=== PATIENT | female | born 1945 | race Caucasian/White ===

== ENCOUNTER 2017-06-22 14:59 | Emergency (ER) | payer MEDICARE ==
[~2017-06-22 14:59] MED LIST: ACYC-1 PO; CALC600T72 PO; DIET1CAP4 PO; GABA-547 PO; GLUC-198 PO; HYDR-385 PO; HYDR12.561 PO; KET10 PO; LEV500 PO; LOR10 PO; LOR5 PO; LOR5/325 PO; METO25TA23 PO; NIT3 PO; NITR1PAT58 TD; PANT40TA65 PO; PRO25 PO; SUCR1TAB51 PO; [UNRECOGNIZED DRUG - CODE] MC
[2017-06-22] MEDS ORDERED: ASPIRIN 81 MG CHEW PO ONE (15:10)
[2017-06-22] MEDS ORDERED: LORazepam 2 MG/ML VIAL IVP ONE (15:10)
--- NOTE | 2017-06-22 15:12 | ER Report ---
History and Physical Time Seen By MD: 15:10 Hx. 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 Musculoskeletal: No back pain. Remainder of the 14 system rev: Yes Allergies: Coded Allergies: Shellfish (Verified Allergy, Severe, FACE BLOATS AND EYES SWELL SHUT, 06/22) bacitracin (Verified Allergy, Intermediate, HIVES, 06/22/17) iodine (Verified Allergy, Intermediate, PT BECAME LETHARGIC, 06/22/17) INTERNAL IODINE FROM CT SCAN latex (Verified Allergy, Intermediate, GLOVES CAUSE A RASH, 06/22/17) polymyxin B (Verified Allergy, Intermediate, HIVES, 06/22/17) Home Meds Active Scripts Promethazine Hcl (Phenergan) 25 Mg Tab, 25 MG PO Q6H, #10 0 Refills NEEDED FOR NAUSEA AND VOMITTING Prov:DANIEL WORKMAN MD 02/06/07 Reported Medications Pantoprazole Sodium (PANTOPRAZOLE SODIUM) 40 Mg Tablet.dr, 40 MG PO QDAY, #30 TAB.SR 07/22/13 Ketorolac Tromethamine (KETOROLAC TROMETHAMINE) 10 Mg Tab, 10 MG PO QID, #16 TAB 07/22/13 Hydrocodone Bit/Acetaminophen (HYDROCODON-ACETAMINOPHEN 5-325) 1 Each Tablet, 1- 2 EACH PO Q4H Y for PAIN 07/22/13 Acyclovir (ACYCLOVIR) 200 Mg Capsule, 200 MG PO BID, #10 CAP TAKE 1 CAPSULE BY MOUTH TWICE A DAY 07/21/13 Gabapentin (GABAPENTIN) 100 Mg Capsule, 100 MG PO TID, CAPSULE 4/29/14 Hydrochlorothiazide (HYDROCHLOROTHIAZIDE) 12.5 Mg Tablet, 1 TAB PO QODAY TAKE ONE TABLET BY MOUTH EVERY DAY 07/21/13 Metoprolol Succinate (METOPROLOL SUCCINATE) 25 Mg Tab.er.24h, 0.5 TAB PO QDAY TAKE ONE TABLET BY MOUTH EVERY DAY 07/21/13 Sucralfate (SUCRALFATE) 1 Gm Tablet, 2 GM PO BIDAC 07/21/13 Acetaminophen/Hydrocodone (Lortab 5/325 Mg) 5 Mg/325 Mg Tab, 1 TAB PO QID Y, 0 Refills 06/26/10 Promethazine Hcl (Phenergan) 25 Mg Tab, 25 MG PO QID Y, 0 Refills 06/26/10 Nitroglycerin (Nitrostat) 0.3 Mg Subl, 0.4 MG PO PRN, 0 Refills 06/26/10 Loratadine (Claritin) 10 Mg Tab, 10 MG PO QDAY, 0 Refills 09/29/09 Calcium Carbonate (Calcium) 600 Mg Tablet, 600 MG PO DAILY, 0 Refills 09/29/09 Dietary Supplement (Mature Women's) 1 Cap Capsule, 1 CAP PO DAILY, 0 Refills 09/29/09 Reviewed Nurses Notes: Yes Old Medical Records Reviewed: Yes Hx Smoking: No Smoking Status: Never Smoker Hx Substance Use Disorder: No Hx Alcohol Use: No Constitutional Vital Sign - Last 24 Hours 06/22/17 06/22/17 15:04 15:04 Resp 18 O2 Delivery Room Air O2 Flow Rate 2.0 Physical Exam General Appearance: The patient is alert, has no immediate need for airway protection and no current signs of toxicity. Appears anxious Eyes: Pupils equal and round no injection. Respiratory: Chest is non tender, lungs are clear to auscultation. Cardiac: regular rate and rhythm [ ] Gastrointestinal: Abdomen is soft and non tender, no masses, bowel sounds normal. Musculoskeletal: Neck: Neck is supple and non tender. Extremities have full range of motion and are non tender. Skin: No rashes or lesions. [ ] DIFFERENTIAL DIAGNOSIS: After history and physical exam differential diagnosis was considered for myocardial infarction pulmonary emboli aortic dissection anxiety Musca skeletal chest pain Medical Decision Making Data Points Result Diagram: 06/22/17 1515 06/22/17 1515 Laboratory Hematology Test 06/22/17 15:15 06/22/17 16:34 Red Blood Count 5.15 M/uL (4.17-5.56) Mean Corpuscular Volume 92.3 fL (80.0-96.0) Mean Corpuscular Hemoglobin 30.9 pg (26.0-33.0) Mean Corpuscular Hemoglobin Concent 33.5 g/dL (32.0-36.0) Red Cell Distribution Width 13.9 % (11.5-14.5) Mean Platelet Volume 7.5 fL (7.2-11.1) Neutrophils (%) (Auto) 83.5 % (39.4-72.5) Lymphocytes (%) (Auto) 9.3 % (17.6-49.6) Monocytes (%) (Auto) 6.6 % (4.1-12.4) Eosinophils (%) (Auto) 0.4 % (0.4-6.7) Basophils (%) (Auto) 0.2 % (0.3-1.4) Nucleated RBC Relative Count (auto) 0.0 /100WBC Neutrophils # (Auto) 13.7 K/uL (2.0-7.4) Lymphocytes # (Auto) 1.5 K/uL (1.3-3.6) Monocytes # (Auto) 1.1 K/uL (0.3-1.0) Eosinophils # (Auto) 0.1 K/uL (0.0-0.5) Basophils # (Auto) 0.0 K/uL (0.0-0.1) Nucleated RBC Absolute Count (auto) 0.00 K/uL D-Dimer Quantitative (PE/DVT) 0.46 ug/ml (0-0.50) Sodium Level 140 mmol/L (137-145) Potassium Level 3.6 mmol/L (3.5-5.0) Chloride Level 99 mmol/L (98-107) Carbon Dioxide Level 29 mmol/L (22-31) Blood Urea Nitrogen 14 mg/dl (7-18) Creatinine 0.90 mg/dl (0.52-1.04) Glomerular Filtration Rate Calc > 60.0 Random Glucose 129 mg/dl (75-110) Calcium Level 8.8 mg/dl (8.4-10.2) Total Bilirubin 0.7 mg/dl (0.2-1.3) Aspartate Amino Transf (AST/SGOT) 51 U/L (0-35) Alanine Aminotransferase (ALT/SGPT) 63 U/L (0-56) Alkaline Phosphatase 157 U/L (0-126) B-Type Natriuretic Peptide < 5 pg/ml (0-100) Total Protein 7.8 gm/dl (6.3-8.2) Albumin 4.2 g/dl (3.5-5.0) Troponin I < 0.012 ng/ml Chemistry Test 06/22/17 15:15 06/22/17 16:34 White Blood Count 16.4 k/uL (4.5-11.0) Red Blood Count 5.15 M/uL (4.17-5.56) Hemoglobin 15.9 g/dL (12.0-16.0) Hematocrit 47.5 % (34.0-47.0) Mean Corpuscular Volume 92.3 fL (80.0-96.0) Mean Corpuscular Hemoglobin 30.9 pg (26.0-33.0) Mean Corpuscular Hemoglobin Concent 33.5 g/dL (32.0-36.0) Red Cell Distribution Width 13.9 % (11.5-14.5) Platelet Count 299 K/uL (150-450) Mean Platelet Volume 7.5 fL (7.2-11.1) Neutrophils (%) (Auto) 83.5 % (39.4-72.5) Lymphocytes (%) (Auto) 9.3 % (17.6-49.6) Monocytes (%) (Auto) 6.6 % (4.1-12.4) Eosinophils (%) (Auto) 0.4 % (0.4-6.7) Basophils (%) (Auto) 0.2 % (0.3-1.4) Nucleated RBC Relative Count (auto) 0.0 /100WBC Neutrophils # (Auto) 13.7 K/uL (2.0-7.4) Lymphocytes # (Auto) 1.5 K/uL (1.3-3.6) Monocytes # (Auto) 1.1 K/uL (0.3-1.0) Eosinophils # (Auto) 0.1 K/uL (0.0-0.5) Basophils # (Auto) 0.0 K/uL (0.0-0.1) Nucleated RBC Absolute Count (auto) 0.00 K/uL D-Dimer Quantitative (PE/DVT) 0.46 ug/ml (0-0.50) Glomerular Filtration Rate Calc > 60.0 Calcium Level 8.8 mg/dl (8.4-10.2) Total Bilirubin 0.7 mg/dl (0.2-1.3) Aspartate Amino Transf (AST/SGOT) 51 U/L (0-35) Alanine Aminotransferase (ALT/SGPT) 63 U/L (0-56) Alkaline Phosphatase 157 U/L (0-126) B-Type Natriuretic Peptide < 5 pg/ml (0-100) Total Protein 7.8 gm/dl (6.3-8.2) Albumin 4.2 g/dl (3.5-5.0) Troponin I < 0.012 ng/ml Coagulation Test 06/22/17 15:15 D-Dimer Quantitative (PE/DVT) 0.46 ug/ml ED Course/Re-evaluation ED Course ED clinical course medical decision make a 71-year-old female who comes in with shortness of breath and anxiety her cardiac workup was negative troponins 2 d- dimer BNP chest x-ray shows a slight bump in her white count unclear etiology went ahead and gave her limit Ativan almost completely resolved her symptoms patient will be discharge diagnosis anxiety she does take anxiety medication at home which she has not taken recently will encourage her taken as prescribed Decision to Disposition Date: Jun 22, 2017 Decision to Disposition Time: 17:06 Depart Departure Latest Vital Signs Vital Signs Date Time Temp Pulse Resp B/P (MAP) Pulse Ox O2 Delivery O2 Flow Rate FiO2 06/22/17 15:04 2.0 06/22/17 15:04 18 Room Air Impression: Primary Impression: Anxiety Condition: Improved Disposition: HOME OR SELF-CARE Referrals: ERWIN JACOBSEN MD (PCP) 5 Days Patient Instructions: Anxiety (DC) JOHAN SHUKLA MD Jun 22, 2017 15:12
--- NOTE | 2017-06-22 15:23 | EKG ---
FACILITY: [facility] - [place] PATIENT NAME: SULAIMAN BROWN : [id number] MR: [id number] V: [id number] EXAM DATE: ORDERING PHYSICIAN: JOHAN SHUKLA TECHNOLOGIST: FLY Carlton Reason : SOB Blood Pressure : / mmHG Vent. Rate : 097 BPM Atrial Rate : 097 BPM P-R Int : 166 ms QRS Dur : 100 ms QT Int : 394 ms P-R-T Axes : 043 -52 091 degrees QTc Int : 500 ms Normal sinus rhythm Left ventricular hypertrophy with repolarization abnormality R wave progression consistent with old ant/sep NE When compared with ECG of 21-JUL-2013 12:36, QRS has widened Confirmed by NIKKIE ABDUL ([id number]) on 06/23/2017 2:03:23 PM Referred By: VAZQUEZ Confirmed By:NIKKIE ABDUL
[2017-06-22 15:32] LABS: PLATELET COUNT, AUTOMATED 299 K/uL (150-450)
--- NOTE | 2017-06-22 15:59 | RADIOLOGY IMAGING REPORT ---
FACILITY: [facility] PATIENT NAME: Sarha Carrizales : 1945 MR: [id number] V: [id number] EXAM DATE: ORDERING PHYSICIAN: JOHAN SHUKLA TECHNOLOGIST: Location: [facility] Patient: Sarah Carrizales : 1945 Visit/Account:[id number] Date of Sevice: 06/22/2017 2 VIEWS CHEST INDICATION: Chest and jaw pain. Unable to take deep breath. COMPARISON: 07/22/2013. FINDINGS: Cardiac silhouette remains mildly enlarged but unchanged. Mediastinal silhouette and pulmonary vessel s within normal limits. There is no focal infiltrate or lobar consolidation. There is no pneumothorax or pleural effusion. No nodule. Chronic interstitial changes. Upper abdomen is unremarkable. No acute bony abnormality. IMPRESSION: 1. Stable mildly enlarged cardiac silhouette without edema or infiltrate. Report Dictated By: Gianluca Hunt at 06/22/2017 3:52 PM Report E-Signed By: Gianluca Hunt at 06/22/2017 3:54 PM WSN:[id number]
[2017-06-22 16:45] VITALS: BP 168/100
== END 2017-06-22 17:55 | disposition home or self-care (01) ==
LOC: ER 15:03
DX: F41.9 Anxiety disorder, unspecified (principal); I51.7 Cardiomegaly
CPT/HCPCS: 71046; 81001; 83880; 84484; 85025; 85379; 93005; 96374; 99284; J2060; 82040; 82247; 82310; 82374; 82435; 82565; 82947; 84075; 84132; 84155; 84295; 84450; 84460; 84520

== ENCOUNTER → 2017-07-08 | Outpatient (CLI) | payer MEDICARE ==
[~2017-07-08] MED LIST changes: +IOPAMIDOL 76% 75 ML INFUS BTL 0 ML ONE
--- NOTE | 2017-07-08 18:03 | RADIOLOGY IMAGING REPORT ---
FACILITY: [facility] PATIENT NAME: Sarah Carrizales : 1945 MR: [id number] V: [id number] EXAM DATE: ORDERING PHYSICIAN: GOPI JOHN TECHNOLOGIST: Location: [facility] - [place] Patient: Sarah Carrizales : 1945 Visit/Account:[id number] Date of Sevice: 07/08/2017 CT ABDOMEN WITHOUT CONTRAST CLINICAL INFORMATION: Abdomen pain, black stools today TECHNIQUE: Axial CT images were obtained through the abdomen without administration of IV contrast. Reformatted coronal and sagittal images were also obtained. Dose Lowering Technique One of the following dose optimization techniques was utilized in the performance of this exam: Autom ated exposure control; adjustment of the mA and/or kV according to the patient's size; or use of an i terative reconstruction technique. Specific details can be referenced in the facility's radiology C T exam operational policy. COMPARISON: CT and pelvis August 27, 2013 FINDINGS: Lower lung fair: There are moderate bilateral posterior layering pleural effusions. There is motio n artifact present. There appears to be a small amount of compressive atelectasis lower lobes. There is a small pericardial effusion Evaluation of the solid organs of the abdomen is limited without IV contrast. Liver: No focal parenchymal abnormality of the liver. Biliary: Postsurgical changes from a cholecystectomy Pancreas: Normal appearance. Spleen: Accessory splenule Adrenal glands: Unremarkable. Kidneys / retroperitoneum: No evidence of nephrolithiasis or hydronephrosis Bowel / peritoneum / mesenteries: Small hiatal hernia. Diverticulosis in the visualized portion of t he descending colon. No CT evidence of acute diverticulitis although exam was limited due to imaging of the abdomen only Lymph node assessment: No pathologic adenopathy identified. Vessels: Mild vascular calcifications atherosclerotic calcification seen throughout a nonaneurysmal a bdominal aorta and branches. Musculoskeletal / Body wall: No aggressive appearing bone lesions IMPRESSION: 1. Small hiatal hernia Diverticulosis of the visualized portion of the descending colon although no CT evidence of acute div erticulitis Post surgical changes from a cholecystectomy Moderate bilateral posterior layering pleural effusions with a small amount of compressive atelectasi s lower lobes Small pericardial effusion Results were called to GOPI JOHN at 07/08/2017 5:58 PM. Report Dictated By: Nadia Salgado MD at 07/08/2017 5:50 PM Report E-Signed By: Nadia Salgado MD at 07/08/2017 5:58 PM WSN:[email or web address]
== END ==
LOC: RAD 16:49
PROVIDERS: ATTEND Physician Assistant Medical
DX: K44.9 Diaphragmatic hernia without obstruction or gangrene (principal); Z90.49 Acquired absence of other specified parts of digestive tract; J90 Pleural effusion, not elsewhere classified; J98.11 Atelectasis; I31.3 Pericardial effusion (noninflammatory)
CPT/HCPCS: 74150; Q9967